=== PATIENT | female | born 1960 | race Caucasian/White ===

== ENCOUNTER → 2018-11-03 | Outpatient (CLI) | payer BC ==
--- NOTE | 2018-11-03 11:52 | Diagnostic Imaging Report ---
PROCEDURE: MRI lumbar spine. TECHNIQUE: Multiplanar, multisequence MRI of the lumbar spine was performed without contrast. INDICATION: Low back pain and left leg pain. FINDINGS: The alignment of lumbar spine is grossly normal. Vertebral body heights are well-maintained. There is no spondylolysis or spondylolisthesis. No fractures are identified. Conus medullaris is seen at L1 is normal in appearance. At T12-L1, there is slight loss of disc height and signal intensity. There is mild annular bulging. There is slight effacement of ventral thecal sac. At L1-L2, there is loss of disc height and signal intensity. There is facet disease and thickening of ligamentum flavum. There is mild central spinal stenosis and yueg-of-lurvkvjt bilateral neural foraminal encroachment. At L2-L3, there is loss of disc height and signal density. There is some facet disease and thickening of ligamentum flavum. There is moderate spinal stenosis with encroachment upon the lateral recess bilaterally left greater than right. There is moderate bilateral neural foraminal encroachment. At L3-L4, there is loss of disc height and signal intensity. There is broad based annular bulging, facet disease and thickening of ligamentum flavum. There is moderate spinal stenosis. There is also moderate bilateral neural foraminal encroachment. At L4-L5, there is loss of disc height and signal density. There is some facet disease and thickening of ligamentum flavum. There is moderate spinal stenosis with mild bilateral neural foraminal encroachment. At L5-S1, there is loss of disc height and signal intensity. There is some mild broad-based annular bulging. There is some facet disease and thickening of ligamentum flavum. There is mild central spinal stenosis and mild bilateral neural foraminal encroachment. The abdominal aorta is nonaneurysmal. Kidneys are normal in appearance. IMPRESSION: Diffuse lumbar spondylosis and multilevel degenerative disc disease as described above. Findings are exacerbated by somewhat congenitally small spinal canal. Dictated by: Dictated on workstation # [id number]
== END ==
LOC: RAD 10:09
PROVIDERS: ATTEND Family Medicine
DX: M51.17 Intervertebral disc disorders with radiculopathy, lumbosacral region (principal); M48.07 Spinal stenosis, lumbosacral region; M47.816 Spondylosis without myelopathy or radiculopathy, lumbar region
CPT/HCPCS: 72148

== ENCOUNTER 2019-05-09 19:04 | Emergency (ER) | payer BC ==
[~2019-05-09] VITALS: Ht 160 cm; Wt 72.2 kg
[2019-05-09] MEDS ORDERED: ONDANSETRON 4 MG/2 ML (SDV) Z0FRAN IVP ONE (19:45)
[2019-05-09] MEDS: NS IV 1000 ML 1,000 ML IV SCH ×2 (20:03→20:42)
[2019-05-09 20:07] LABS: HEMATOCRIT 45 % (35-52); HEMOGLOBIN 15.3 G/DL (11.5-16.0); MEAN CORPUSCULAR HEMOGLOBIN 29 PG (25-34); MEAN CORPUSCULAR HGB CONC 34 G/DL (32-36); MEAN CORPUSCULAR VOLUME 86 FL (80-99); WHITE BLOOD COUNT 8.3 10^3/uL (4.3-11.0)
[2019-05-09 20:08] LABS: BASOPHILS % (AUTO) 0 % (0-10); EOSINOPHILS # (AUTO) 0.6 10^3/uL (0.0-0.3); EOSINOPHILS % (AUTO) 7 % (0-10); LYMPHOCYTES # (AUTO) 2.6 X 10^3 (1.0-4.0); LYMPHOCYTES % (AUTO) 32 % (12-44); MEAN PLATELET VOLUME 9.6 FL (7.4-10.4); MONOCYTES # (AUTO) 0.9 X 10^3 (0.0-1.0); MONOCYTES % (AUTO) 11 % (0-12); NEUTROPHILS # (AUTO) 4.2 X 10^3 (1.8-7.8); NEUTROPHILS % (AUTO) 50 % (42-75); PLATELET COUNT 293 10^3/uL (130-400); RED CELL DISTRIBUTION WIDTH 11.9 % (10.0-14.5)
--- NOTE | 2019-05-09 20:19 | Diagnostic Imaging Report ---
Clinical indication: Patient stated that she felt dizzy today and high blood pressure and high blood sugar. Exam: Portable chest x-ray upright view. Comparisons: None. Findings: Lungs/pleura: There is mild atelectasis in the left lung base and right lung base regions. There is no lung infiltrate seen. There is no pneumothorax. There is no pleural effusion. Mediastinum: Unremarkable. Pulmonary vasculature: Unremarkable. Heart: Unremarkable. Bones/extrathoracic soft tissue: There are degenerative spurs involving the thoracic spine. Impression: 1.: There is mild atelectasis involving the right lung base and left lung base regions. There is no radiographic evidence of acute cardiopulmonary process. Dictated by: Dictated on workstation # [id number]
[2019-05-09 20:20] LABS: CHLORIDE 93 MMOL/L (98-107); POTASSIUM 4.1 MMOL/L (3.6-5.0); SODIUM 130 MMOL/L (135-145)
[2019-05-09 20:21] LABS: ALANINE AMINOTRANSFERASE 47 U/L (0-55); ALBUMIN 4.7 GM/DL (3.2-4.5); ALKALINE PHOSPHATASE 136 U/L (40-136); BILIRUBIN,TOTAL 0.4 MG/DL (0.1-1.0); BUN/CREATININE RATIO 25; CALCIUM 10.1 MG/DL (8.5-10.1); CARBON DIOXIDE 22 MMOL/L (21-32); CREATININE SERUM 0.63 MG/DL (0.60-1.30); GFR ESTIMATED > 60; GLUCOSE 324 MG/DL (70-105); MAGNESIUM 2.1 MG/DL (1.6-2.4); TOTAL PROTEIN 8.4 GM/DL (6.4-8.2)
[2019-05-09 20:22] LABS: LIPASE 25 U/L (8-78)
[2019-05-09] MEDS ORDERED: FAMOTIDINE 20MG/2ML IV (PEPCID) IVP ONE (20:30)
[2019-05-09 21:54] LABS: BILIRUBIN,URINE NEGATIVE (NEGATIVE); CLARITY,URINE CLEAR; COLOR,URINE YELLOW; GLUCOSE, URINE (UA) TRACE (NEGATIVE); KETONES,URINE NEGATIVE (NEGATIVE); LEUKOCYTE ESTERASE ,URINE NEGATIVE (NEGATIVE); NITRITE,URINE NEGATIVE (NEGATIVE); PROTEIN,URINE NEGATIVE (NEGATIVE)
[2019-05-09 21:55] LABS: BACTERIA,URINE NEGATIVE /HPF; WBC,URINE RARE /HPF; YEAST,URINE FEW /HPF
[2019-05-09 22:11] VITALS: BP 138/80
[2019-05-10] MEDS ORDERED: FAMOTIDINE 20MG/2ML IV (PEPCID) IVP SCH (09:00)
--- NOTE | 2019-05-10 14:58 | ED General ---
General Chief Complaint: Cardiac/General Problems Stated Complaint: BLOOD SUGAR ISSUES, BP ISSUES Nursing Triage Note: PT AMBULATE TO ROOM FS04 WITH C/O HYPTERTENSION SYSTOLIC IN THE 300S AT HOME AND HYPERGYLCEMIA WITH A GLUCOSE OF 325 AT HOME. PT STATES SHE WAS FEELING DIZZY. PT HAS NO PRIOR BLOOD PRESSURE ISSUES AND IS NON INSULIN DIABETIC. Nursing Sepsis Screen: No Definite Risk Source of Information: Patient Exam Limitations: No Limitations History of Present Illness Date Seen by Provider: May 09, 2019 Time Seen by Provider: 19:33 Initial Comments Patient is a 58-year-old female with history of zrz-dnavwlu-bvxoownkv diabetes who presents with palpitations generalized fatigue and hyperglycemia. Patient states her blood sugars been running in the 2-500 range of the past 3 weeks. She denies change of medications, missed medications or change in diet. This afternoon, the patient reports palpitations feeling dizzy and lightheaded. Patient's report symptoms after taking Benadryl for treatment of allergies. No chest pain, shortness of breath, increased leg pain or swelling. No fever chills, sweats, abdominal pain, nausea or vomiting. No flank pain, urinary frequency urgency dysuria. Denies history of CAD, CHF, valvular heart disease, and arrhythmia. She is a nonsmoker. No other acute symptoms or complaints. Allergies and Home Medications Allergies Coded Allergies: No Known Allergies (Verified Allergy, Unknown, 05/09/19) Patient Home Medication List Home Medication List Reviewed: Yes Review of Systems Review of Systems Constitutional: see HPI EENTM: see HPI Respiratory: see HPI Cardiovascular: see HPI Genitourinary: see HPI Musculoskeletal: see HPI Skin: see HPI Psychiatric/Neurological: See HPI Hematologic/Lymphatic: See HPI Past Bcfxirw-Qumvbd-Aankwx Hx Past Med/Social Hx: Reviewed Nursing Past Med/Soc Hx Patient Social History Alcohol Use: Occasionally Uses Recreational Drug Use: No Smoking Status: Never a Smoker 2nd Hand Smoke Exposure: No Recent Foreign Travel: No Contact w/Someone Who Travel: No Recent Infectious Disease Expo: No Recent Hopitalizations: Yes ([facility] 2 WEEKS AGO FOR HIGH BLOOD SUGAR) Physical Abuse: No Sexual Abuse: No Mistreated: No Fear: No Seasonal Allergies Seasonal Allergies: Yes Past Medical History Surgeries: Yes (C SECTION X2) Hysterectomy Respiratory: No Cardiac: Yes High Cholesterol Neurological: No Genitourinary: No Gastrointestinal: No Musculoskeletal: Yes Degenerate Disk Disease, Back Injury, Chronic Back Pain Endocrine: Yes Diabetes, Non-Insulin dep HEENT: No Cancer: No Psychosocial: No Integumentary: No Blood Disorders: No Physical Exam Vital Signs Vital Signs - First Documented 05/09/19 19:30 Temp 36.4 Pulse 116 Resp 20 B/P (MAP) 143/95 (111) Pulse Ox 98 O2 Delivery Room Air Capillary Refill : Less Than 3 Seconds Height, Weight, BMI Height: '" Weight: lbs. oz. kg; 28.00 BMI Method: General Appearance: No Apparent Distress, WD/WN, Anxious Eyes: Bilateral Eye Normal Inspection, Bilateral Eye PERRL, Bilateral Eye EOMI HEENT: PERRL/EOMI, TMs Normal, Pharynx Normal Neck: Non Tender, Supple Respiratory: Lungs Clear Cardiovascular: Regular Rate, Rhythm, No Edema Back: Normal Inspection Extremity: Normal Capillary Refill Neurologic/Psychiatric: Alert, Oriented x3, No Motor/Sensory Deficits, Normal Mood/Affect, reinforcing rod layer II-XII Norm as Tested Focused Exam Sepsis Stage: Ruled Out Progress/Results/Core Measures Suspected Sepsis Recent Fever Within 48 Hours: No Infection Criteria Present: None New/Unexplained Altered Menta: No Sepsis Screen: No Definite Risk SIRS Temperature: Pulse: 76 Respiratory Rate: 17 Laboratory Tests 05/09/19 19:51: White Blood Count 8.3 Blood Pressure 138 /80 Mean: 111 Laboratory Tests 05/09/19 19:51: Creatinine 0.63, Platelet Count 293, Total Bilirubin 0.4 Results/Orders Lab Results Laboratory Tests Test 05/09/19 19:29 05/09/19 19:51 05/09/19 21:37 05/09/19 21:39 Range/Units Glucometer 294 H 217 H 70-110 MG/DL White Blood Count 8.3 4.3-11.0 10^3/uL Red Blood Count 5.24 4.35-5.85 10^6/uL Hemoglobin 15.3 11.5-16.0 G/DL Hematocrit 45 35-52 % Mean Corpuscular Volume 86 80-99 FL Mean Corpuscular Hemoglobin 29 25-34 PG Mean Corpuscular Hemoglobin Concent 34 32-36 G/DL Red Cell Distribution Width 11.9 10.0-14.5 % Platelet Count 293 130-400 10^3/uL Mean Platelet Volume 9.6 7.4-10.4 FL Neutrophils (%) (Auto) 50 42-75 % Lymphocytes (%) (Auto) 32 12-44 % Monocytes (%) (Auto) 11 0-12 % Eosinophils (%) (Auto) 7 0-10 % Basophils (%) (Auto) 0 0-10 % Neutrophils # (Auto) 4.2 1.8-7.8 X 10^3 Lymphocytes # (Auto) 2.6 1.0-4.0 X 10^3 Monocytes # (Auto) 0.9 0.0-1.0 X 10^3 Eosinophils # (Auto) 0.6 H 0.0-0.3 10^3/uL Basophils # (Auto) 0.0 0.0-0.1 10^3/uL Sodium Level 130 L 135-145 MMOL/L Potassium Level 4.1 3.6-5.0 MMOL/L Chloride Level 93 L 98-107 MMOL/L Carbon Dioxide Level 22 21-32 MMOL/L Anion Gap 15 H 5-14 MMOL/L Blood Urea Nitrogen 16 7-18 MG/DL Creatinine 0.63 0.60-1.30 MG/DL Estimat Glomerular Filtration Rate > 60 BUN/Creatinine Ratio 25 Glucose Level 324 H 70-105 MG/DL Calcium Level 10.1 8.5-10.1 MG/DL Corrected Calcium 8.5-10.1 MG/DL Magnesium Level 2.1 1.6-2.4 MG/DL Total Bilirubin 0.4 0.1-1.0 MG/DL Aspartate Amino Transf (AST/SGOT) 28 5-34 U/L Alanine Aminotransferase (ALT/SGPT) 47 0-55 U/L Alkaline Phosphatase 136 40-136 U/L Troponin I < 0.30 <0.30 NG/ML Total Protein 8.4 H 6.4-8.2 GM/DL Albumin 4.7 H 3.2-4.5 GM/DL Lipase 25 8-78 U/L Urine Color YELLOW Urine Clarity CLEAR Urine pH 6.0 5-9 Urine Specific [place] <=1.005 1.016-1.022 Urine Protein NEGATIVE NEGATIVE Urine Glucose (UA) TRACE H NEGATIVE Urine Ketones NEGATIVE NEGATIVE Urine Nitrite NEGATIVE NEGATIVE Urine Bilirubin NEGATIVE NEGATIVE Urine Urobilinogen 0.2 NORMAL MG/DL Urine Leukocyte Esterase NEGATIVE NEGATIVE Urine RBC (Auto) NEGATIVE NEGATIVE Urine RBC NONE /HPF Urine WBC RARE /HPF Urine Squamous Epithelial Cells 5-10 /HPF Urine Crystals NONE /LPF Urine Bacteria NEGATIVE /HPF Urine Casts NONE /LPF Urine Mucus NEGATIVE /LPF Urine Yeast FEW H /HPF Urine Culture Indicated NO My Orders Orders - ISABEL NOVA DO Cbc With Automated Diff (05/09/19 19:42) Comprehensive Metabolic Panel (05/09/19 19:42) Lipase (05/09/19 19:42) Ua Culture If Indicated (05/09/19 19:42) Troponin I Fs (05/09/19 19:42) Ekg Tracing (05/09/19 19:42) Magnesium (05/09/19 19:42) Chest 1 View Ap/Pa Only (05/09/19 19:42) Ondansetron Injection (Zofran Injectio (05/09/19 19:45) Ns Iv 1000 Ml (Sodium Chloride 0.9%) (05/09/19 19:45) Ed Iv/Invasive Line Start (05/09/19 19:53) Accucheck Prn (05/09/19 20:10) Famotidine Injection (Pepcid Injection) (05/09/19 20:30) Beta Hydroxybutyrate (05/09/19 20:51) Accucheck Achs ACHS (05/09/19 21:36) Vital Signs/I&O 05/09/19 23:59 Intake Total 1000 ml Balance 1000 ml Capillary Refill : Less Than 3 Seconds Blood Pressure Mean: 111 Departure Communication (Admissions) EKG, chest x-ray, labs reviewed. Symptoms significantly improved with IVF. No current evidence of underlying heart disease/arrhythmia. Suspect urtication effect from Benadryl. Recommendations are supportive care with PCP follow-up for further management of blood sugar and eevaluation of hyponatremia. Return precautions reviewed. Patient verbalizes understanding treatment discharge instructions prior to departure Impression Primary Impression: Palpitations Additional Impressions: Hyperglycemia Hyponatremia Disposition: 01 HOME, SELF-CARE Condition: Improved Departure-Patient Inst. Add. Discharge Instructions: Please continue home medications as scheduled and increase daily fluid intake. Follow up with your PCP for re-evaluation. Retun to the ED if new or worsening symptoms. All discharge instructions reviewed with patient and/or family. Voiced understanding. ISAEBL NOVA DO May 10, 2019 14:58
== END 2019-05-09 22:09 | disposition home or self-care (01) ==
LOC: EDUNIT# 19:04 → ER FS 19:05
DX: R00.2 Palpitations (principal); E11.65 Type 2 diabetes mellitus with hyperglycemia; E87.1 Hypo-osmolality and hyponatremia; E78.00 Pure hypercholesterolemia, unspecified; Z90.710 Acquired absence of both cervix and uterus
CPT/HCPCS: 36415; 71045; 80053; 81000; 82010; 82962; 83690; 83735; 84484; 85025; 93005

== ENCOUNTER 2021-07-18 22:16 | Emergency (ER) | payer BC ==
--- OUTSIDE RECORDS SUMMARY | 2021-07-18 22:20 | XMS REPORT | Clinical Summary ---
Author Author [facility] Organization [facility] Address Unknown Phone Unavailable Care Team Providers Care Transformation Analyst Name Role Phone PCP Unavailable Allergies Not on File Medications Not on file Active Problems Not on file Social History Date Tobacco Use Types Packs/Day Years Used Never Assessed Sex Assigned at Date Recorded Not on file Last Filed Vital Signs Not on file Plan of Treatment Health Maintenance Due Date Last Done Comments Hepatitis C Screen 1960 Td/Tdap# 1960 COVID-19 Vaccine (1) 12/07/1967 Cervical Cancer Screening 12/07/1983 via Pap Smear Colorectal Screening via 2012 Colonoscopy Mammogram Screening 2012 Zoster Vaccine# (1 of 2) 2012 Influenza Vaccine (#1) 2021 03/31/2020 Pneumococcal Vaccine: Aged Out No longer eligib le based on patient's age to Pediatrics (0 to 5 Years) complete this topic and At-Risk Patients (6 to 64 Years) Results Not on filefrom Last 3 Months Insurance Type Payer Benefit Subscriber ID Effective Phone Address Plan / Dates Group [facility] [id number] [id number] [place] [address] Advance Directives For more information, please contact: [phone] Patient Operator Specialist Communications Explanation Type Date Recorded Health Care Directive
--- OUTSIDE RECORDS SUMMARY | 2021-07-18 22:21 | XMS REPORT ---
Author Author [facility] Address Unknown Phone Unavailable Care Team Providers Care Rotary Drill Rig Operator Name Role Phone Kamille Ashton Unavailable PROBLEMS Type Condition ICD9-CM Code [id number] Code Onset Dates Condition S tatus W/U Status Risk SNOMED Code Notes Problem Type 2 diabetes mellitus with other specified complication E11.69 Active confirmed 333375868607 Problem Mixed hyperlipidemia E78.2 Active confirmed 579492113 Problem Hyperlipidemia LDL goal <100 E78.5 Active confirme d 90103036 Problem Attention deficit hyperactivity disorder (ADHD), unspecified ADHD type F90.9 Active confirmed 670871619 Problem Primary insomnia F51.01 Active confirmed 397 2004 Problem Moderate episode of recurrent major depressive disorder F33.1 Active confirmed 678011076 Problem Sleep disturbance G47.9 Active confirmed 53 002550 Problem Fatty liver K76.0 Active confirmed 13706019 7 Problem Neuropathy G62.9 Active confirmed 114725878 Problem Type 2 diabetes mellitus with hyperglycemia E11.65 Active confirmed 251241356669594 Problem Type 2 diabetes mellitus with diabetic neuropathy, uns pecified E11.40 Active confirmed 72798250 ALLERGIES Allergen (clinical drug ingredient) Drug/Non Drug Allergy do cumented on EMR Reaction Allergy Type Onset Date Status empagliflozin Jardiance([facility] Code:[address]-09) yeast infections an increased UTI Drug Allergy Active ENCOUNTERS from 1960 to 2021-05-27 Encounter Location Date Provider Diagnosis [facility] [address] [facility], [facility] [address] May, Kamille Ashton IMMUNIZATIONS Vaccine Route Administration Date Status Cov-19 Moderna Vaccine Unknown October 23, 2020 Administe red Cov-19 Moderna Vaccine Unknown September 24, 2020 Administe red Flu Quadrivalent (IM) Preserv fee 6 months+ Unknown Sep 2019 Administered PCV, [id number] IM Intramuscular Apr 27, 2019 Administered Flu Quadrivalent (IM) Preserv fee 6 months+ IM Intramuscular Oc 2018 Administered SOCIAL HISTORY Tobacco Use: Social History Observation Description Date Details (start date - stop date) Never Smoker Sex Assigned At : Social History Observation Description Sex Assigned At Unknown Alcohol Screen Question Answer Notes Did you have a drink containing alcohol in the past year? Ye s Points 1 Interpretation Negative How often did you have 6 or more drinks on one occasio n in the past year? Never (0 points) How many drinks did you have on a typica l day when you were drinking in the past year? 1 or 2 (0 points) How often did you have a drink containing alcohol in t he past year? Monthly or less (1 point) Tobacco Use/Smoking Question Answer Notes Are you a never smoker Additional Findings: Tobacco Non-User Current non-smoker REASON FOR REFERRAL No Information VITAL SIGNS No information MEDICATIONS Medication SIG (Take, Route, Frequency, Duration) Notes Start Da te End Date Status Dicyclomine HCl 10 MG 2 capsules Orally Three times a day prn for 90 days Not-Taking Vitamin C Active glipiZIDE 5 MG 1 tablet Orally Once a day for 90 Active Krill Oil Active Accu-Chek Guide - USE DIRECTED ONCE DAILY for 100 Active Ezetimibe 10 MG Take 1 tablet by mouth once daily for 90 Active Crestor 20 MG 1 tablet Orally Once a day for 90 Active Xanax 0.5 MG 1 tablet Orally once a day prn severe anxiety Active Insulin NPH (Human) (Isophane) 100 UNIT/ML as directed Subcutaneous 30 units at h.s. for 30 days May, Active Vitamin D3 Active Januvia 100 MG 1 tablet Orally Once a day for 30 day(s) May, Active Propranolol HCl 20 MG 1 tablet Orally Once a day for 30 day(s) Active Amphetamine-Dextroamphetamine 10 MG 1 tablet Orally Twice a day Active Rexulti 0.5 MG 1 tablet Orally Once a day for 30 day(s) Active Stool Softener Active Turmeric Active Omeprazole 20 MG 1 capsule 30 minutes before morning meal Orally Once a day for 30 day(s) Active Insulin NPH Isophane & Regular (70-30) 100 UNIT/ML as directed Subcutaneous 10 units in evening for 30 days Feb, Not -Taking Amitriptyline HCl 50 MG TAKE 1 TO 2 TABLETS BY MOUTH ONCE DAILY for 9 0 Not-Taking Zinc Active metFORMIN HCl 1000 MG as directed Orally 2 in am and 1 pm for 30 days Active Pen Richards 12/02" 31G X 8 MM as directed once a day for 90 days Feb, Active Wellbutrin XL 150 MG 1 tablet in the morning Orally Once a day for 90 Active PROCEDURES No Information RESULTS No Results REASON FOR VISIT ret. call MEDICAL (GENERAL) HISTORY Type Description Date Medical History arthritis Medical History diabetes type 2 with neuropathy and hype rglycemia Medical History high cholesterol - mixed hyperlipidemia Medical History chronic insomnia Medical History IBS with constipation Medical History recurrent major depressive disorder Medical History situation anxiety disorder Medical History fatty liver Surgical History 2 c sections Surgical History Laparoscopy x2 Hospitalization History Diabetes & hypothyroidism 04/20/19 Goals Section No Information Health Concerns No Information MEDICAL EQUIPMENT No Information MENTAL STATUS No Information FUNCTIONAL STATUS No Information ASSESSMENTS No Information PLAN OF TREATMENT Medication Medication Name Sig Start Date Stop Date Januvia 100 MG 1 tablet Orally Once a day for 30 day(s) May, metFORMIN HCl 1000 MG as directed Orally 2 in am and 1 pm for 30 days Insulin NPH (Human) (Isophane) 100 UNIT/ML as directed Subcutaneous 30 units at h.s. for 30 days May, Insurance Providers Payer Name Payer Address Payer Phone Insured Name Patient Relati onship to Insured Coverage Start Date Coverage End Date [employer] [address] [facility] [id number] tita [id number] 2016
--- NOTE | 2021-07-18 22:24 | ED Neurological Problem ---
General Stated Complaint: DIZZY History of Present Illness Date Seen by Provider: Jul 18, 2021 Time Seen by Provider: 22:24 Initial Comments 60-year-old female presents with some mild dizziness. Cough, generalized malaise. Patient was febrile upon arrival. Patient reports that about a week ago she was diagnosed with a UTI and started on Macrobid. She feels like she still having similar symptoms. She denies any nausea or vomiting. Allergies and Home Medications Allergies Coded Allergies: No Known Allergies (Verified Allergy, Unknown, 05/09/19) Patient Home Medication List Home Medication List Reviewed: Yes Cephalexin (Cephalexin) 500 Mg Tablet, 500 MG PO QID Prescribed by: MAIRA AUGUST on 07/19/21 0118 Review of Systems Review of Systems Constitutional: dizziness, fever, malaise Respiratory: cough; No short of breath; wheezing Cardiovascular: No chest pain, No palpitations Gastrointestinal: No abdominal pain, No nausea, No vomiting Genitourinary: see HPI Musculoskeletal: no symptoms reported Skin: no symptoms reported Psychiatric/Neurological: No Symptoms Reported Past [id number] Hx Seasonal Allergies Seasonal Allergies: Yes Past Medical History Surgeries: Yes (C SECTION X2) Hysterectomy Respiratory: No Cardiac: Yes High Cholesterol Neurological: No Genitourinary: No Gastrointestinal: No Musculoskeletal: Yes Degenerate Disk Disease, Back Injury, Chronic Back Pain Endocrine: Yes Diabetes, Non-Insulin dep HEENT: No Cancer: No Psychosocial: No Integumentary: No Blood Disorders: No Physical Exam Vital Signs Vital Signs - First Documented 07/18/21 22:30 Temp 39.6 Pulse 105 Resp 18 B/P (MAP) 126/74 (91) Pulse Ox 97 O2 Delivery Room Air Capillary Refill : Height, Weight, BMI Height: '" Weight: lbs. oz. kg; 28.00 BMI Method: General Appearance: WD/WN, no apparent distress Respiratory: no respiratory distress, no accessory muscle use, wheezing (Mild) Neurologic/Psychiatric: alert, normal mood/affect, oriented x 3 Crainal Nerves: normal speech Coordination/Gait: normal gait Motor/Sensory: no motor deficit, no sensory deficit Skin: normal color, warm/dry Progress/Results/Core Measures Results/Orders Lab Results Laboratory Tests Test 07/18/21 00:20 07/18/21 22:35 07/18/21 22:42 07/18/21 22:53 Range/Units Urine Color YELLOW Urine Clarity CLEAR Urine pH 6.5 5-9 Urine Specific [place] <=1.005 1.016-1.022 Urine Protein NEGATIVE NEGATIVE Urine Glucose (UA) NEGATIVE NEGATIVE Urine Ketones 1+ H NEGATIVE Urine Nitrite POSITIVE H NEGATIVE Urine Bilirubin NEGATIVE NEGATIVE Urine Urobilinogen 0.2 < = 1.0 MG/DL Urine Leukocyte Esterase 1+ H NEGATIVE Urine RBC (Auto) NEGATIVE NEGATIVE Urine RBC NONE /HPF Urine WBC 10-25 H /HPF Urine Squamous Epithelial Cells 0-2 /HPF Urine Crystals NONE /LPF Urine Bacteria LARGE H /HPF Urine Casts NONE /LPF Urine Mucus NEGATIVE /LPF Urine Culture Indicated YES Influenza Type A Antigen NEGATIVE NEGATIVE Influenza Type B Antigen NEGATIVE NEGATIVE White Blood Count 13.8 H 4.3-11.0 10^3/uL Red Blood Count 4.24 3.80-5.11 10^6/uL Hemoglobin 12.5 11.5-16.0 g/dL Hematocrit 37 35-52 % Mean Corpuscular Volume 87 80-99 fL Mean Corpuscular Hemoglobin 30 25-34 pg Mean Corpuscular Hemoglobin Concent 34 32-36 g/dL Red Cell Distribution Width 12.3 10.0-14.5 % Platelet Count 341 130-400 10^3/uL Mean Platelet Volume 8.7 L 9.0-12.2 fL Immature Granulocyte % (Auto) 0 % Neutrophils (%) (Auto) 78 H 42-75 % Lymphocytes (%) (Auto) 11 L 12-44 % Monocytes (%) (Auto) 10 0-12 % Eosinophils (%) (Auto) 1 0-10 % Basophils (%) (Auto) 0 0-10 % Neutrophils # (Auto) 10.8 H 1.8-7.8 X 10^3 Lymphocytes # (Auto) 1.6 1.0-4.0 X 10^3 Monocytes # (Auto) 1.3 H 0.0-1.0 X 10^3 Eosinophils # (Auto) 0.1 0.0-0.3 10^3/uL Basophils # (Auto) 0.0 0.0-0.1 10^3/uL Immature Granulocyte # (Auto) 0.1 0.0-0.1 10^3/uL Sodium Level 129 L 135-145 MMOL/L Potassium Level 4.1 3.6-5.0 MMOL/L Chloride Level 95 L 98-107 MMOL/L Carbon Dioxide Level 20 L 21-32 MMOL/L Anion Gap 14 5-14 MMOL/L Blood Urea Nitrogen 9 7-18 MG/DL Creatinine 0.63 0.60-1.30 MG/DL Estimat Glomerular Filtration Rate 97 BUN/Creatinine Ratio 14 Glucose Level 180 H 70-105 MG/DL Calcium Level 9.1 8.5-10.1 MG/DL Corrected Calcium 8.9 8.5-10.1 MG/DL Total Bilirubin 0.5 0.1-1.0 MG/DL Aspartate Amino Transf (AST/SGOT) 23 5-34 U/L Alanine Aminotransferase (ALT/SGPT) 29 0-55 U/L Alkaline Phosphatase 90 40-136 U/L C-Reactive Protein 14.94 H <0.50 MG/DL Total Protein 7.9 6.4-8.2 GM/DL Albumin 4.3 3.2-4.5 GM/DL SARS-CoV-2 RNA (RT-PCR) Not Detected Not Detecte My Orders Orders - AUGUST,MAIRA L DO Cbc With Automated Diff (07/18/21 22:35) Comprehensive Metabolic Panel (07/18/21 22:35) Ua Culture If Indicated (07/18/21 22:35) Crp Fs (07/18/21 22:35) Influenza A & B Antigens (07/18/21 22:35) Chest 1 View Ap/Pa Only (07/18/21 22:35) Covid 19 Inhouse Test (07/18/21 22:35) Albuterol Inhaler (Albuterol) (07/18/21 22:45) Ns Iv 1000 Ml (Sodium Chloride 0.9%) (07/18/21 22:41) Ibuprofen Tablet (Motrin Tablet) (07/18/21 22:42) Ed Iv/Invasive Line Start (07/18/21 23:17) Ed Iv/Invasive Line Start (07/19/21 00:14) Ns Iv 1000 Ml (Sodium Chloride 0.9%) (07/19/21 00:15) Urine Culture (07/18/21 00:20) Ceftriaxone (Rocephin) (07/19/21 01:00) Medications Given in ED Current Medications Medications Dose Ordered Sig/Lindsey Route Start Time Stop Time Status Last Admin Dose Admin Albuterol Sulfate 4 PUFFS Q4HR PRN IH 07/18/21 22:45 07/19/21 01:29 DC 07/18/21 22:52 8.5 GM Ceftriaxone Sodium 2000 mg/ Sodium Chloride 50 ml @ 240 mls/hr ONCE ONCE IV 07/19/21 01:00 07/19/21 01:12 DC 07/19/21 01:00 240 MLS/HR Vital Signs/I&O 07/18/21 07/19/21 22:30 01:07 Temp 39.6 38.3 Pulse 105 96 Resp 18 18 B/P (MAP) 126/74 (91) 112/64 Pulse Ox 97 96 O2 Delivery Room Air Room Air Progress Progress Note : Progress Note Patient with a urinary tract infection. Patient did have some mild wheezing on exam. She reports that when she was a child there was some concerns about asthma. I did have her use an inhaler here. Patient's Covid test is pending upon discharge. I will start her on Keflex. She was given 2 g Rocephin IV in the ER prior to discharge. Patient stable and discharged Departure Impression Primary Impression: Acute cystitis Qualified Codes: N30.00 - Acute cystitis without hematuria Additional Impression: Wheezing Disposition: HOME, SELF-CARE Condition: Stable Departure-Patient Inst. Referrals: NO,LOCAL PHYSICIAN (PCP/Family) Primary Care Physician Patient Instructions: Wheezing, Acute Cystitis (DC) Add. Discharge Instructions: May use your inhaler every 4-6 hours as needed for wheezing, shortness of breath Follow-up with your primary care provider as needed If your Covid test comes back positive please contact your provider to consider a Regeneron infusion or Covid antibody pill prescription Scripts Cephalexin (Cephalexin) 500 Mg Tablet 500 MG PO QID, #20 TAB 0 Refills Prov: AUGUST,MAIRA L DO 07/19/21 AUGUST,MAIRA L DO Jul 18, 2021 22:24
[2021-07-18] MEDS ORDERED: NS IV 1000 ML 1,000 ML IV STA (22:41)
[2021-07-18] MEDS ORDERED: IBUPROFEN TABLET 200 MG TAB PO STA (22:42)
[2021-07-18] MEDS ORDERED: RT-ALBUTEROL HFA 8.5 GM INHALER IH PRN (22:45)
[2021-07-18 23:06] LABS: HEMATOCRIT 37 % (35-52); HEMOGLOBIN 12.5 g/dL (11.5-16.0); LYMPHOCYTES % (AUTO) 11 % (12-44); MEAN CORPUSCULAR HEMOGLOBIN 30 pg (25-34); MEAN CORPUSCULAR HGB CONC 34 g/dL (32-36); MEAN CORPUSCULAR VOLUME 87 fL (80-99); MEAN PLATELET VOLUME 8.7 fL (9.0-12.2); NEUTROPHILS % (AUTO) 78 % (42-75); PLATELET COUNT 341 10^3/uL (130-400); WHITE BLOOD COUNT 13.8 10^3/uL (4.3-11.0)
[2021-07-18 23:07] LABS: BASOPHILS % (AUTO) 0 % (0-10); EOSINOPHILS # (AUTO) 0.1 10^3/uL (0.0-0.3); EOSINOPHILS % (AUTO) 1 % (0-10); LYMPHOCYTES # (AUTO) 1.6 X 10^3 (1.0-4.0); MONOCYTES # (AUTO) 1.3 X 10^3 (0.0-1.0); MONOCYTES % (AUTO) 10 % (0-12); NEUTROPHILS # (AUTO) 10.8 X 10^3 (1.8-7.8)
--- NOTE | 2021-07-18 23:07 | Diagnostic Imaging Report ---
EXAMINATION: Chest radiograph, portable AP view. DATE: 07/18/2021 11:02 PM INDICATION: 60-year-old female, cough. COMPARISON: May 09, 2019. FINDINGS: Heart size and mediastinal contours are unremarkable. There is no identified pneumothorax. There is no large pleural effusion. There is a mildly displaced fracture of the left sixth rib laterally. This appears potentially acute. There is no identified focal airspace consolidation. IMPRESSION: 1. No identified acute cardiopulmonary abnormality. 2. Mildly displaced left sixth rib fracture which appears likely acute. Recommend correlation for focal pain at this site. Dictated by: Dictated on workstation # [id number]
[2021-07-18 23:36] LABS: POTASSIUM 4.1 MMOL/L (3.6-5.0)
[2021-07-18 23:37] LABS: ALBUMIN 4.3 GM/DL (3.2-4.5); BILIRUBIN,TOTAL 0.5 MG/DL (0.1-1.0); CALCIUM 9.1 MG/DL (8.5-10.1); CREATININE SERUM 0.63 MG/DL (0.60-1.30); TOTAL PROTEIN 7.9 GM/DL (6.4-8.2)
[2021-07-19] MEDS ORDERED: NS IV 1000 ML 1,000 ML IV SCH (00:15)
[2021-07-19 00:32] LABS: BILIRUBIN,URINE NEGATIVE (NEGATIVE); CLARITY,URINE CLEAR; COLOR,URINE YELLOW; GLUCOSE, URINE (UA) NEGATIVE (NEGATIVE); KETONES,URINE 1+ (NEGATIVE); LEUKOCYTE ESTERASE ,URINE 1+ (NEGATIVE); NITRITE,URINE POSITIVE (NEGATIVE); PH,URINE 6.5 (5-9); PROTEIN,URINE NEGATIVE (NEGATIVE)
[2021-07-19 00:38] LABS: BACTERIA,URINE LARGE /HPF
[2021-07-19 00:39] LABS: SQUAMOUS EPITHELIAL CELL,UR 0-2 /HPF
[2021-07-19] MEDS ORDERED: cefTRIAXone 2,000 MG in NS (IVPB) 50 ML IV ONE (01:00)
[2021-07-19 01:07] VITALS: BP 112/64
[2021-07-19] MEDS ORDERED: CEPH500T PO (01:18)
== END 2021-07-19 01:29 | disposition home or self-care (01) ==
LOC: EDUNIT# 22:16 → ER FS 22:17
DX: N30.00 Acute cystitis without hematuria (principal); R06.2 Wheezing; E11.9 Type 2 diabetes mellitus without complications; Z90.710 Acquired absence of both cervix and uterus; Z20.822 Contact with and (suspected) exposure to COVID-19
CPT/HCPCS: 36415; 71045; 80053; 81000; 85025; 86141; 87077; 87088; 87186; 87636; 87804

== ENCOUNTER → 2022-02-26 | Outpatient (CLI) | payer BC ==
[~2022-02-26] MED LIST: CEPH500T PO
--- NOTE | 2022-02-26 12:26 | Diagnostic Imaging Report ---
INDICATION: Low back pain. Time of Exam: 11:49 AM 3 views lumbar spine were obtained. Curvature of the lumbar spine is normal. There is minimal retrolisthesis of L1 on L2 as well as L5 on S1. Vertebral body heights are maintained. No acute compression fracture seen. There is multilevel degenerative disc disease with variable disc space narrowing and marginal spurring. There is multilevel facet arthropathy. IMPRESSION: Lumbar spondylosis. No acute bony abnormality is detected. Dictated by: Dictated on workstation # [id number]
--- NOTE | 2022-02-26 12:33 | Diagnostic Imaging Report ---
INDICATION: Left hip pain. Time of Exam: 11:47 AM 2 views left hip demonstrate osteoarthritic changes of the left hip joint. There is superior and medial joint space narrowing. There is spurring at the femoral head neck junction both laterally and medially. No fractures are seen. Rami are intact. IMPRESSION: Left hip degenerative changes. No acute bony abnormality is detected. Dictated by: Dictated on workstation # [id number]
== END ==
LOC: RAD FS 11:23
PROVIDERS: ATTEND Nurse Practitioner
DX: M47.816 Spondylosis without myelopathy or radiculopathy, lumbar region (principal); M17.12 Unilateral primary osteoarthritis, left knee; M51.36 Other intervertebral disc degeneration, lumbar region
CPT/HCPCS: 72100; 73502